=== PATIENT | female | born 1985 | race Hispanic/Latino ===

== ENCOUNTER 2018-08-24 19:30 | Emergency (ER) | payer SELFPAY ==
[~2018-08-24 19:30] MED LIST: ISOVUE-370 76%-LOCM 1 ML ONE
[2018-08-24] MEDS ORDERED: Lorazepam 2 MG/ML VIAL ONE (19:39)
[2018-08-24 19:54] LABS: #Basophils 0.1 thou/uL (0.0-0.2); #Eosinphils 0.3 thou/uL (0.0-0.7); #Lymphocytes 3.2 thou/uL (1.20-3.40); #Monocytes 0.7 thou/uL (0.11-0.59); #Neutrophils 4.5 thou/uL (1.40-6.50); %Basophils 1.3 % (0.0-1.0); %Eosinophils 3.3 % (0.0-10.0); %Lymphocytes 36.7 % (21.0-51.0); %Monocytes 7.6 % (0.0-10.0); %Neutrophils 51.1 % (42.0-75.0); Hemoglobin 14.1 g/dL (12.0-16.0); Mean Corpuscular HGB CONC 33.2 g/dL (32.0-36.0); Mean Corpuscular Hemoglobin 32.5 pg (27.0-31.0); Mean Platelet Volume 8.1 fL (7.4-10.4); Platelet Count 250 thou/uL (130-400); RBC Distribution Width 12.2 % (11.5-14.5); Red Blood Cell (RBC) Count 4.32 mill/uL (4.20-5.40); White Blood Cell (WBC) Count 8.8 thou/uL (4.8-10.8)
[2018-08-24 20:14] LABS: ALT (SGPT) 30 U/L (8-55); AST (SGOT) 24 U/L (5-34); Albumin 4.6 g/dL (3.5-5.0); Alkaline Phosphatase 66 U/L (40-150); Anion Gap 13 mmol/L (10-20); BUN (Urea Nitrogen) 25 mg/dL (7.0-18.7); Bilirubin, Total 0.3 mg/dL (0.2-1.2); CK (CPK) 106 U/L (29-168); Calc. Creatinine Clearance 0 mL/min (70-130); Calcium 10.3 mg/dL (7.8-10.44); Carbon Dioxide 20 mmol/L (22-29); Chloride 107 mmol/L (98-107); Estimated GFR-MDRD 78; Glucose 101 mg/dL (70-105); Potassium 3.4 mmol/L (3.5-5.1); Protein, Total 7.6 g/dL (6.0-8.3); Sodium 137 mmol/L (136-145)
[2018-08-24] MEDS ORDERED: Ketorolac Tromethamine 30 MG/ML VIAL ONE (20:17)
[2018-08-24] MEDS ORDERED: diphenhydrAMINE 50 MG/ML VIAL ONE (20:17)
[2018-08-24] MEDS ORDERED: Metoclopramide HCl 10 MG/2 ML VIAL ONE (20:17)
[2018-08-24] MEDS ORDERED: Sodium Chloride 0.9% 100 ML ONE (20:18)
--- NOTE | 2018-08-24 21:39 | CT ---
CT HEAD NONCONTRAST: History: Altered mental status. Comparison: 08-02-15 FINDINGS: There is no evidence of acute intracranial hemorrhage or infarct. Ventricles appear normal in size, s hape, and position. There is no mass effect or shift of midline structures. Visualized paranasal sinu ses remain well aerated. IMPRESSION: No acute intracranial abnormalities are demonstrated. POS: FRANCIS
[2018-08-24] MEDS ORDERED: methylPREDNISolone Sod Succ/PF 125 MG/2 ML VIAL ONE (21:47)
[2018-08-24] MEDS ORDERED: Magnesium 2 GM/50 ML BAG (IN WATER) ONE (21:48)
--- NOTE | 2018-08-24 23:21 | CT ---
CT ANGIOGRAM HEAD WITH CONTRAST CT ANGIOGRAM NECK WITH CONTRAST: Date: 08-24-18 Time: 9:01 p.m. History: 33-year-old female with altered mental status, headache, and facial paresthesia. As requested, this r eport was called STAT to Marissa Huynh at 9:20 p.m. on 08-24-18. The possibility of Graves' disease of the orbits was raised Technique: IV contrast injection of Isovue. Arterial bolus chasing technique scan performed from denis to vertex of head. Coronal and sagittal 3 D MIP reconstruction. FINDINGS: The extraocular muscles in the orbits appear to be diffusely symmetrically enlarged, raising the poss ibility of Grave's disease of the orbits. The thyroid gland is within normal limits in size. The intr acranial anterior and posterior circulation appears normal, including normal M1 segments of bilateral middle cerebral arteries. Carotid siphons are normal. The intracranial and cervical portions of the bilateral vertebral, internal carotid, common carotid, right subclavian, brachiocephalic, proximal le ft subclavian arteries, and the aortic arch are normal. Lung apices are clear. Cervical spine appears normal. IMPRESSION: 1. Symmetrically enlarged bilateral extraocular muscles, raising the possibility of thyroid orbitopat hy (Graves disease of orbits). Recommend correlation with serum TSH and T4 levels. 2. Normal arteries of the neck and [place]. Code CR. POS: TRINI
== END 2018-08-24 23:05 | disposition home or self-care (01) ==
LOC: ERS 19:30
DX: G43.809 Other migraine, not intractable, without status migrainosus (principal); F41.9 Anxiety disorder, unspecified; Z86.73 Personal history of transient ischemic attack (TIA), and cerebral infarction without residual deficits
CPT/HCPCS: 70450; 70496; 70498; 80053; 82550; 84443; 84484; 85025; 93005; 96361; 96365; 96375; J1200; J1885; J2060; J2765; J2930; J3475; J7050; Q9966